=== PATIENT | male | born 2000 | race Caucasian/White ===

== ENCOUNTER 2023-05-22 13:21 | Emergency (ER) | payer BC, SELFPAY ==
[2023-05-22 13:42] VITALS: BP 153/77; PULSE 97; RESP 18; TEMP 36.7; O2SAT 98
--- NOTE | 2023-05-22 14:06 | ED.MALEGU ---
HPI - Male Genitourinary General Stated complaint: Tight throat History of Present Illness HPI Narrative: Patient presents with sore throat and concern for urinary tract infection as well as STD. Patient has no trouble swallowing no drooling. Patient states he has burning with urination denies any discharge no abdominal pain no flank pain no gross hematuria. Related Data Allergies Allergy/AdvReac Type Severity Reaction Status Date / Time No Known Allergies Allergy Verified 05/22/23 14:10 Review of Systems Review of Systems: CONSTITUTIONAL: Denies fever, chills, or sweats. EYES: Denies visual changes, redness, or discharge. ENT: Denies rhinorrhea, congestion, sore throat, or otalgia. CARDIOVASCULAR: Denies chest pain, palpitations, or edema. RESPIRATORY: Denies cough or dyspnea. GASTROINTESTINAL: Denies abdominal pain, nausea, vomiting, or diarrhea. GENITOURINARY: Denies dysuria or hematuria. SKIN: Denies rash or itching. MUSCULOSKELETAL: Denies back pain, joint pain, or myalgia. NEUROLOGIC: Denies headache, numbness, or weakness. PSYCHIATRIC: Denies anxiety or depression. PMFSH Comments At time of signature, agree with nursing past medical, surgical, social and family history. There is no relevant family history pertinent to the presenting complaint Exam Narrative: GENERAL: Well-appearing, well-nourished, and in no acute distress. HEAD: Normocephalic, atraumatic. EYES: PERRLA and EOMI. ENT: Nares clear, no rhinorrhea or epistaxis. Mucous membranes moist. NECK: Supple. CHEST: Clear to auscultation. No respiratory distress. HEART: Regular rate and rhythm. No murmur heard. Normal peripheral pulses. ABDOMEN: Soft, nontender, nondistended, normal active bowel sounds. EXTREMITIES: Normal range of motion. No edema. SKIN: Warm, dry, no rash. NEURO: No focal deficits. Alert and oriented x3. Jeanna Coma Scale Eye Opening: Spontaneous 4 [place] Coma Scale Motor: Obeys Commands 6 [place] Coma Scale Verbal: Oriented 5 Jeanna Coma Scale Total 15 Course Course Level of Care: Express Care Visit Vital Signs Vital signs: Vital Signs Temperature 36.7 C 05/22/23 13:42 Pulse Rate 97 05/22/23 13:42 Respiratory Rate 18 05/22/23 13:42 Blood Pressure 153/77 H 05/22/23 13:42 Pulse Oximetry 98 05/22/23 13:42 Oxygen Delivery Room Air 05/22/23 13:42 Temperature 36.7 C 05/22/23 13:42 Pulse Rate 97 05/22/23 13:42 Respiratory Rate 18 05/22/23 13:42 Blood Pressure 153/77 H 05/22/23 13:42 Pulse Oximetry 98 05/22/23 13:42 Oxygen Delivery Room Air 05/22/23 13:42 Please ABHI schedule a followup visit with your personal physician for further evaluation and treatment. Including recheck and discussion of your blood pressure. If your symptoms persist, change or worsen significantly before you can contact your personal physician then please, without delay, go to the emergency department for further evaluation Discussed with patient will treat with doxycycline today which is the treatment for chlamydia. Will start on omeprazole his symptoms are consistent with reflux. Patient agreeable with plan of care MDM - Male Genitourinary Lab Data Labs: Urine Glucose Negative Reference Range: Negative Urine Bilirubin 1+ Reference Range: Negative Urine Ketone Negative Reference Range: Negative Urine Specific [place] 1.020 Reference Range:1.001-1.035 Urine Blood Trace Reference Range: Negative * * Urine pH 6.0 Reference Range: 5.0-9.0 Urine
== END 2023-05-22 14:16 | disposition home or self-care (01) ==
PROVIDERS: Emergency Provider Nurse Practitioner Family
DX: J02.9 Acute pharyngitis, unspecified (principal); R30.0 Dysuria; Z13.9 Encounter for screening, unspecified
CPT/HCPCS: 81003; 87081; 87086; 87088; 87491; 87591; 87661; 87880; 99213; G0463